=== PATIENT | male | born 1960 | race Caucasian/White ===

== ENCOUNTER 2018-12-18 03:44 | Emergency (ER) | payer OTHER ==
[~2018-12-18] VITALS: Ht 172.7 cm; Wt 86.2 kg
[2018-12-18 04:53] LABS: ABSOLUTE NEUTROPHILS 6.9 thou/uL (1.4-8.2); BASOPHILS 0.8 % (0.0-2.0); EOSINOPHILS 1.3 % (0.0-3.0); HEMATOCRIT 45.3 % (42.0-52.0); HEMOGLOBIN 15.2 gm/dL (14.0-18.0); LYMPHOCYTES 27.1 % (24.0-44.0); MCH 30.1 pg (26.0-34.0); MCHC 33.5 g/dL (28.0-37.0); MCV 89.8 fL (80.0-100.0); MONOCYTES 7.3 % (1.0-8.0); PLATELET COUNT 236 thou/uL (150-400); POLYS 63.5 % (36.0-66.0); RBC 5.04 mil/uL (4.50-6.00); RDW 13.1 % (10.5-14.5); WBC 10.8 thou/uL (4.0-11.0)
[2018-12-18 05:00] LABS: ANION GAP 12 mmol/L (7-16); BUN 14 mg/dL (7-18); CALCIUM 9.7 mg/dL (8.5-10.1); CHLORIDE 103 mmol/L (98-107); CO2 25 mmol/L (21-32); CREATININE 0.9 mg/dL (0.7-1.3); GLUCOSE 112 mg/dL (74-106); POTASSIUM 4.6 mmol/L (3.5-5.1); SODIUM 140 mmol/L (136-145)
[2018-12-18 05:10] LABS: ALBUMIN 4.1 g/dL (3.4-5.0); LIPASE 134 U/L (73-393); SGOT 25 U/L (15-37); SGPT 26 U/L (30-65); TOTAL BILIRUBIN 0.5 mg/dL (<0.1-1.0); TOTAL PROTEIN 7.5 g/dL (6.4-8.2); TROPONIN-I <0.06 ng/mL (<0.06)
[2018-12-18 05:28] VITALS: BP 149/90
--- NOTE | 2018-12-18 12:09 | EKG ---
[place] [address] [address] [facility] [employer] [address] ELECTROCARDIOGRAM REPORT Name: SHIRA BURGESS Room #: [facility]P [facility] [id number] ������������������ Admission: 12/18/18 ������������������ Attend Phys: Discharge: 12/18/18 ������������������ Date of : 58 Report #: [id number] ����������������������������������������������������������������� [id number] THIS REPORT FOR: //name// [facility] ED Test Date: 2018-12-18 Test Time: 04:14:08 Pat Name: SHIRA BURGESS Department: Room: Gender: Appointment Coordinator: : 1960 Requested By: Davey Nowak Order Number: [id number] MD: Vinh Porter Measurements Intervals [place] Rate: 75 P: 59 SC: 156 QRS: 58 QRSD: 97 T: 36 QT: 395 QTc: 442 Interpretive Statements Sinus rhythm Nonspecific ST-T wave changes with J-point elevation and correlation suggested No previous ECG available for comparison Electronically Signed On 12-18-2018 12:09:04 MEDICAL TRANSCRIPTIONIST by Vinh Porter [email or web address] ��������������������������������������������� <ELECTRONICALLY SIGNED> ���������������������������������������� By: Vinh Porter MD ��������������������������������������������� 12/18/18 1209 0414 0414 Vinh Porter MD /CHETAN
== END 2018-12-18 05:28 | disposition home or self-care (01) ==
LOC: ER 03:44
PROVIDERS: Emergency Medicine
DX: R20.2 Paresthesia of skin (principal); R20.0 Anesthesia of skin; R10.9 Unspecified abdominal pain